=== PATIENT | female | born 1965 | race African-American/Black ===

== ENCOUNTER 2024-01-24 13:26 | Emergency (ER) | payer OTHER ==
[2024-01-24 13:44] VITALS: BP 106/66; PULSE 67; RESP 18; TEMP 97; BMI 30.1
[2024-01-24] MEDS ORDERED: DIPHTH,PERTUSS(ACELL),TET 0.5 ML DISP.SYRIN IM ONE ×2 (14:32→14:45)
[2024-01-24] MEDS: DIPHTH,PERTUSS(ACELL),TET 0.5 ML DISP.SYRIN IM ONE (14:41)
[2024-01-24 15:16] LABS: POTASSIUM 4.1 mmol/L (3.5-5.1)
[2024-01-24 15:20] LABS: CALCIUM 9.5 mg/dL (8.5-10.1)
[2024-01-24 15:21] LABS: ALBUMIN 3.5 g/dl (3.4-5.0); BLOOD UREA NITROGEN 16.2 mg/dL (7-18)
[2024-01-24 15:24] LABS: CREATININE 0.6 mg/dL (0.55-1.3)
[2024-01-24 15:26] LABS: BILIRUBIN,TOTAL 0.4 mg/dL (0.2-1); TOT PROT 7.6 g/dl (6.4-8.2)
[2024-01-24 16:30] LABS: HIV INTERPRETATION NEGATIVE (NEGATIVE)
== END 2024-01-24 15:55 | disposition home or self-care (01) ==
LOC: JERFT 13:26
PROC: 3E0234Z Introduction of Serum, Toxoid and Vaccine into Muscle, Percutaneous Approach (ICD-10-PCS; principal; 2024-01-24)
DX: S60.456A Superficial foreign body of right little finger, initial encounter (principal); W45.8XXA Other foreign body or object entering through skin, initial encounter; Y99.0 Civilian activity done for income or pay
CPT/HCPCS: 36415; 80053; 86704; 86803; 87340; 87389; 87517; 90715; 99283-25